=== PATIENT | female | born 1990 | race Caucasian/White ===

== ENCOUNTER 2018-07-06 06:05 | Emergency (ER) | payer BC ==
--- OUTSIDE RECORDS SUMMARY | 2018-07-06 06:08 | XMS REPORT | Clinical Summary ---
:1990 Author Organization [facility] Address [address] [place] [address] Care Team Providers Name Role Phone Chiquita Stallings MD Primary Care Provider Allergies Active Allergy Reactions Severity Noted Date Comments Cephalosporins High 09/24/2017 Medications Medication Sig Dispensed Refills Start Date End Date Status etonogestrel 68 mg Inject under 0 Active implant the skin. sulfamethoxazole-tr Take 1 tablet 14 tablet 0 09/24/2017 imethoprim (BACTRIM by mouth 2 8 DS) 800-160 mg per (two) times a tablet day for 7 days. smx-tmp DS (BACTRIM) 800-160 mg tabs (1tab q12 D10) ciprofloxacin Take 500 mg by 0 Discontinued (CIPRO) 500 MG mouth 2 (two) 8 tablet times a day. clindamycin Take 2 28 capsule 0 02/27/2018 (CLEOCIN) 150 MG capsules (300 8 capsule mg total) by mouth 3 (three) times a day for 7 days. ibuprofen Take 1 tablet 30 tablet 0 02/27/2018 (ADVIL,MOTRIN) 600 (600 mg total) 8 MG tablet by mouth every 6 (six) hours as needed for moderate pain for up to 30 days. Active Problems Not on file Encounters Date Type Specialty Care Team Description 06/08/2018 Office Visit Chiquita Saleh, Hilar adenopathy (Primary Dx); Medicine Anterior cervical adenopathy; Other fatigue; Chronic night sweats 03/06/2018 Office Visit Chiquita Saleh, Pure hypercholesterolemia (Primary Dx); Medicine Subclinical hypothyroidism; Hilar adenopathy; Anterior cervical adenopathy; Inguinal adenopathy; Chronic bilateral low back pain without sciatica 02/26/2018 Emergency Emergency Anusha, Pharyngitis, unspecified - Medicine Esequiel etiology (Primary Dx) 02/27/2018 MD Richard 02/26/2018 Hospital Radiology Chiquita Stallings, Chronic bilateral low back Encounter MD pain without sciatica 02/25/2018 Office Visit Internal Chiquita Stallings, Hilar adenopathy (Primary Dx); Medicine MD Anterior cervical adenopathy; Acute cystitis without hematuria; Inguinal adenopathy; Chronic bilateral low back pain without sciatica; Elevated fasting blood sugar; Other fatigue; Weight gain; Screening for lipid disorders; Screening for diabetes mellitus 09/24/2017 Emergency Emergency Bakari Win Insect bite, initial Medicine T. III, encounter (Primary Dx) after 07/05/2017 Family History Medical History Relation Name Comments Atrial fibrillation Father Sleep apnea Father Hyperlipidemia Mother Hypertension Mother Transient ischemic attack Mother Colon cancer Paternal Grandmother Diabetes Paternal Grandmother Relation Name Status Comments Father Mother Paternal Grandmother Social History Tobacco Use Types Packs/Day Years Used Date Current Every Day Smoker Cigarettes Smokeless Tobacco: Current User Sex Assigned at Date Recorded Not on file Job Start Date Occupation Industry Not on file Not on file Not on file Travel History Travel Start Travel End No recent travel history available. Last Filed Vital Signs Vital Sign Reading Time Taken Blood Pressure 125/85 06/08/2018 4:13 PM CDT Pulse 106 06/08/2018 4:13 PM CDT Temperature 37 C (98.6 F) 03/06/2018 3:07 PM CDT Respiratory Rate 18 02/27/2018 12:37 AM CDT Oxygen Saturation 97% 06/08/2018 4:13 PM CDT Inhaled Oxygen Concentration - - Weight 98.9 kg (218 lb) 06/08/2018 4:13 PM CDT Height 167.6 cm (5' 6") 06/08/2018 4:13 PM CDT Body Mass Index 35.19 06/08/2018 4:13 PM CDT Plan of Treatment Health Maintenance Due Date Last Done Comments MMR VACCINES (1 of - 1993 Standard series) VARICELLA VACCINES (1 of 2 - 2005 2-dose adolescent series) INFLUENZA VACCINE 03/18/2018 05/18/2017, 08/12/2012 CERVICAL CANCER SCREENING 01/04/2019 01/05/2016 HEPATITIS B VACCINES Aged Out No longer eligible based on patient's age to complete this topic IPV VACCINES Aged Out No longer eligible based on patient's age to complete this topic MENINGOCOCCAL VACCINE Aged Out No longer eligible based on patient's age to complete this topic Procedures Procedure Name Priority Date/Time Associated Comments Diagnosis HIV 1/2 Routine 06/08/2018 4:46 Hilar adenopathy Results for this ANTIGEN/ANTIBODY, PM CDT Anterior cervical procedure are in FOURTH GENERATION adenopathy the results W/RFL Other fatigue section. Chronic night sweats STREP SCREEN CULTURE Routine 02/26/2018 11:51 Results for this PM CDT procedure are in the results section. GROUP A STREP, RAPID Routine 02/26/2018 11:30 Results for this ANTIGEN PM CDT procedure are in the results section. XR LUMBAR SPINE Routine 02/26/2018 1:41 Chronic bilateral Results for this COMPLETE 4+ VW PM CDT low back pain procedure are in without sciatica the results section. MICROSCOPIC Routine 02/25/2018 3:10 Results for this EXAMINATION PM CDT procedure are in the results section. SEDIMENTATION RATE Routine 02/25/2018 3:10 Hilar adenopathy Results for this PM CDT Anterior cervical procedure are in adenopathy the results Inguinal adenopathy section. URINALYSIS, COMPLETE, Routine 02/25/2018 3:10 Acute cystitis Results for this WITH REFLEX TO CULTURE PM CDT without hematuria procedure are in the results section. T4, FREE Routine 02/25/2018 3:10 Other fatigue Results for this PM CDT Weight gain procedure are in the results section. THYROID STIMULATING Routine 02/25/2018 3:10 Other fatigue Results for this HORMONE PM CDT Weight gain procedure are in the results section. LIPID PANEL Routine 02/25/2018 3:10 Screening for lipid Results for this PM CDT disorders procedure are in the results section. HEMOGLOBIN A1C Routine 02/25/2018 3:10 Elevated fasting Results for this PM CDT blood sugar procedure are in Screening for the results diabetes mellitus section. after 07/05/2017 Results HIV 1/2 ANTIGEN/ANTIBODY, FOURTH GENERATION W/RFL (06/08/2018 4:46 PM CDT) HIV AG/AB 4th gen Non Reactive Non Reactive [facility] Narrative Performed At Performed at: - [facility] [address] [facility], [id number] Elevator Constructor Hydraulic: Adalberto Aviles MD, Phone:[phone] Performing Organization Address City/State/Zipcode Phone Number [facility] Strep screen culture (02/26/2018 11:51 PM CDT) Strep screen culture No beta hemolytic Streptococci isolated [facility] DEPARTMENT OF isolate Comment: PATHOLOGY AND GENOMIC Specimen Information MEDICINE Specimen Source: Throat Specimen Site: Not otherwise specified Specimen Throat - Not otherwise specified Performing Organization Address City/State/Zipcode Phone Number [facility] DEPARTMENT OF PATHOLOGY AND [address] [place] [address] [facility] Group A strep, rapid antigen (02/26/2018 11:30 PM CDT) Group A strep, rapid Negative for Group A Streptococcus antigen. DEPARTMENT OF antigen result Comment: PATHOLOGY AND GENOMIC Specimen Information [facility] Specimen Source: Throat [facility] Specimen Site: Not otherwise specified Specimen Throat - Not otherwise specified Performing Organization Address [facility] Phone Number DEPARTMENT OF PATHOLOGY AND [address] [place] [address] [facility]R Lumbar Spine Complete 4+ Vw (02/26/2018 1:41 PM CDT) Narrative Performed At EXAMINATION: XR LUMBAR SPINE COMPLETE 4VW [facility] CLINICAL HISTORY: M54.5 Low back pain, G89.29 Other chronic pain, BACK PAIN 6 WKS DESPITE [place] COMPARISON:None IMPRESSION: 5 nonrib-bearing lumbar-type vertebrae visualized. The alignment is within normal limits. No subluxation. No fractures or pars interarticularis defects. Vertebral body and intervertebral disc heights are preserved. [id number] Procedure Note Interface, Radiology Results Incoming - 02/26/2018 5:25 PM CDT EXAMINATION: XR LUMBAR SPINE COMPLETE 4 VW CLINICAL HISTORY: M54.5 Low back pain, G89.29 Other chronic pain, BACK PAIN 6 WKS [place] COMPARISON: None IMPRESSION: 5 nonrib-bearing lumbar-type vertebrae visualized. The alignment is within normal limits. No subluxation. No fractures or pars interarticularis defects. Vertebral body and intervertebral disc heights are preserved. [id number] Performing Organization Address City/[facility]/Zipcode Phone Number [facility] [address] [place] [address] URINALYSIS, COMPLETE, WITH REFLEX TO CULTURE (02/25/2018 3:10 PM CDT) Specific gravity, urine 1.016 1.005 - 1.030 [facility] pH, urine 5.5 5.0 - 7.5 [facility] Color, UA Yellow Yellow [facility] Appearance Clear Clear [facility] WBC esterase, urine Negative Negative [facility] Protein, UA Negative Negative/Trace [facility] Glucose, urine Negative Negative [facility] Ketones, UA Negative Negative [facility] Occult blood, urine Negative Negative [facility] Bilirubin, UA Negative Negative [facility] Urobilinogen, UA 0.2 0.2 - 1.0 mg/dL [facility] Nitrite, UA Negative Negative [facility] Microscopic examination CommentComment: Microscopic [facility] follows if indicated. Microscopic examination See below:Comment: Microscopic [facility] was indicated and was performed. Urinalysis reflex CommentComment: This specimen [facility] will not reflex to a Urine Culture. Narrative Performed At Performed at: [facility] [address] [place], [place] [id number] Elevator Constructor Hydraulic: Adalberto Aviles MD, Phone:[phone] Performing Organization Address [facility] Phone Number [facility] Microscopic Examination (02/25/2018 3:10 PM CDT) WBC, UA 0-5 0 - 5 /hpf [facility] RBC, UA 0-2 0 - 2 /hpf [facility] Epithelial cells (non renal) 0-10 0 - 10 /hpf [facility] Casts Present (A) None seen /lpf [facility] Cast type Hyaline casts N/A [facility] Mucus, UA Present Not Estab. [facility] Bacteria, UA None seen None seen/Few [facility] Narrative Performed At Performed at: [facility], [id number] Elevator Constructor Hydraulic: Adalberto Aviles MD, Phone:[phone] Performing Organization Address [facility] Phone Number [facility] Sedimentation rate (02/25/2018 3:10 PM CDT) Sedimentation rate 2 0 - 32 mm/hr [facility] Specimen Blood Narrative Performed At Performed at: [id number] Elevator Constructor Hydraulic: Adalberto Aviles MD, Phone:[phone] Performing Organization Address [facility] Phone Number [facility] Thyroid stimulating hormone (02/25/2018 3:10 PM CDT) TSH 5.810 (H) 0.450 - 4.500 uIU/mL [facility] Specimen Blood Narrative Performed At Performed at: [id number] Elevator Constructor Hydraulic: Adalberto Aviles MD, Phone:[phone] Performing Organization Address [facility] Phone Number [facility] T4, free (02/25/2018 3:10 PM CDT) T4, free 1.26 0.82 - 1.77 ng/dL [facility] Specimen Blood Narrative Performed At Performed at: [id number] Elevator Constructor Hydraulic: Adalberto Aviles MD, Phone:[phone] Performing Organization Address [facility] Phone Number [facility] Hemoglobin A1c (02/25/2018 3:10 PM CDT) Hemoglobin A1C 5.1 4.8 - 5.6 % [facility] Comment: Pre-diabetes: 5.7 - 6.4 Diabetes: >6.4 Glycemic control for adults with diabetes: <7.0 Specimen Blood Narrative Performed At Performed at: [id number] Elevator Constructor Hydraulic: Adalberto Aviles MD, Phone:[phone] Performing Organization Address [facility] Phone Number [facility] Lipid panel (02/25/2018 3:10 PM CDT) Cholesterol 211 (H) 100 - 199 mg/dL [facility] Triglycerides 128 0 - 149 mg/dL [facility] HDL cholesterol 35 (L) >39 mg/dL [facility] VLDL cholesterol dionne 26 5 - 40 mg/dL [facility] LDL cholesterol calculated 150 (H) 0 - 99 mg/dL [facility] Non-HDL cholesterol 176 (H) 0 - 129 mg/dL [facility] Specimen Blood Narrative Performed At Performed at:01 - [facility] [address], [id number] Elevator Constructor Hydraulic: Adalberto Aviles MD, Phone:[phone] Performing Organization Address City/State/Zipcode Phone Number [facility] after 07/05/2017 Insurance Payer Benefit Plan / Group Subscriber ID Type Phone Address BCBS BCBS CHOICE PPO/F[employer]ERAL EMPL PPO xxxxxxxxxxxx PPO [phone] [id number] [phone] [place] [address] 3 (Work) Advance Directives Patient has advance care planning documents on file. For more information, please contact:Emigdio Atkinson[address] [place] [id number]
[2018-07-06] MEDS ORDERED: ACETAMINOPHEN 500 MG TAB ONE (06:38)
[2018-07-06] MEDS ORDERED: ONDANSETRON 4 MG/2 ML VIAL ONE (06:38)
[2018-07-06] MEDS ORDERED: NA CHLORIDE 0.9% 1,000 ML ONE (06:38)
[2018-07-06 07:03] LABS: ALT/SGPT 30 U/L (12-78); AST/SGOT 19 U/L (15-37); Albumin 3.7 g/dL (3.4-5.0); Alkaline Phosphatase 90 U/L (45-117); BUN Blood Urea Nitrogen 7 mg/dL (7-18); Bicarbonate 25 mmol/L (21-32); Bilirubin Direct < 0.1 mg/dL (0-0.2); Bilirubin Total 0.1 mg/dL (0.2-1.0); Glucose Level 103 mg/dL (74-106); Lipase 98 U/L (73-393); Potassium 3.8 mmol/L (3.5-5.1); Protein, Total 7.5 g/dL (6.4-8.2); Sodium Level 138 mmol/L (136-145)
[2018-07-06 07:04] LABS: HCG, Quantitative < 1 mIU/mL (1-3)
[2018-07-06 08:21] LABS: Absolute Lymphocytes (CBC) 2.3 K/uL (0.7-4.9); Absolute Monocytes 0.7 K/uL (0.1-1.3); Absolute Neutrophil 7.2 K/uL (1.8-8.0); Basophils % 0.6 % (0-1.3); Eosinophils % 2.5 % (0-4.4); Lymphocytes % 21.5 % (15.3-44.8); MCH 31.5 pg (27.0-35.0); MCV 89.8 fL (80-100); MPV 9.4 fL (7.6-11.3); Monocytes % 6.9 % (3.3-12.3); RBC Red Blood Cell Count 4.56 M/uL (3.86-4.86)
--- NOTE | 2018-07-06 08:38 | RAD REPORT ---
EXAM DESCRIPTION: CTAbdomen Pelvis W Contrast - 07/06/2018 7:54 am CLINICAL HISTORY: Abdominal pain. iv only;Abd pain COMPARISON: No comparisons TECHNIQUE: Biphasic CT imaging of the abdomen and pelvis was performed with 100 ml non-ionic IV cont rast. All CT scans are performed using dose optimization technique as appropriate and may include automated exposure control or mA/KV adjustment according to patient size. FINDINGS: The lung bases are clear.Small hiatal hernia. The liver, spleen, pancreas, adrenal glands and kidneys are within normal limits. No bowel obstruction, free air, free fluid or abscess. A large amount of stool is retained in the col on. The appendix is normal. No evidence of significant lymphadenopathy. No suspicious bony findings. IMPRESSION: No acute intra-abdominal or pelvic finding. Significant fecal retention in the colon.
--- NOTE | 2018-07-06 08:48 | ER ---
Nurse's Notes [facility] Name: Ashley Lindsay Age: 27 yrs Sex: Female : 1990 Arrival Date: 07/06/2018 Time: 06:07 Bed 17 Private MD: Diagnosis: Pneumonia due to other specified bacteria;Dehydration;Abdominal and pelvic pain Presentation: 07/06 06:15 Presenting complaint: Patient states: "I have had a sinus infection for about 2 weeks jd3 now and it is just not getting any better. I started having nausea and vomiting and have thrown up 5 times last night.". Transition of care: patient was not received from another setting of care. Onset of symptoms was June 22, 2018. Risk Assessment: Do you want to hurt yourself or someone else? Patient reports no desire to harm self or others. Initial Sepsis Screen: Does the patient meet any 2 criteria? HR > 90 bpm. No. Patient's initial sepsis screen is negative. Does the patient have a suspected source of infection? No. Patient's initial sepsis screen is negative. Care prior to arrival: None. 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 - Social history:: Smoking status: Patient uses tobacco products, smokes one pack cigarettes per day. - Ebola Screening: : Patient negative for fever greater than or equal to 101.5 degrees Fahrenheit, and additional compatible Ebola Virus Disease symptoms. Screenin:25 Abuse screen: Denies threats or abuse. Nutritional screening: No deficits noted. jd3 Tuberculosis screening: No symptoms or risk factors identified. Fall Risk Ambulatory Aid- None/Bed Rest/Nurse Assist (0 pts). Gait- Normal/Bed Rest/Wheelchair (0 pts) Mental Status- Oriented to own ability (0 pts). Total Leyva Fall Scale indicates No Risk (0-24 pts). Assessment: 06:23 General: Appears uncomfortable, Behavior is calm, cooperative, appropriate for age. jd3 Pain: Complains of pain in abdomen Pain currently is 3 out of 10 on a pain scale. Quality of pain is described as aching, tender. Neuro: Level of Consciousness is awake, alert, obeys commands, Oriented to person, place, time, situation. Cardiovascular: Capillary refill < 3 seconds Patient's skin is warm and dry. Respiratory: Reports cough that is Airway is patent Respiratory effort is even, unlabored, Respiratory pattern is regular, symmetrical, Breath sounds are clear bilaterally. GI: Abdomen is round non-distended, Bowel sounds present X 4 quads. Abd is soft Abdomen is tender to palpation in left upper quadrant and left lower quadrant Reports nausea, vomiting. : No signs and/or symptoms were reported regarding the genitourinary system. EENT: No signs and/or symptoms were reported regarding the EENT system. Derm: Skin is intact, Skin is dry, Skin is normal, Skin temperature is warm. Musculoskeletal: Circulation, motion, and sensation intact. Range of motion: intact in all extremities. 07:05 General: Appears comfortable, Behavior is calm, cooperative. Pain: Complains of pain in aa5 left lower quadrant Pain does not radiate. Pain currently is 2 out of 10 on a pain scale. Quality of pain is described as dull, Pain began "during the night" Is continuous. Neuro: Level of Consciousness is awake, alert, obeys commands, Oriented to person, place, time, situation. Cardiovascular: Heart tones S1 S2 present. Respiratory: Reports cough and chest congestion x 2 weeks ago Airway is patent Respiratory effort is even, unlabored, Respiratory pattern is regular, symmetrical, Breath sounds are clear bilaterally. GI: Abdomen is round non-distended, Bowel sounds present X 4 quads. Abd is soft X 4 quads Abdomen is tender to palpation in left lower quadrant Reports nausea, vomiting, since "during the night". : No signs and/or symptoms were reported regarding the genitourinary system. EENT: Reports nasal congestion. Derm: Skin is pink, warm \\T\\ dry. Musculoskeletal: Range of motion: intact in all extremities. 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 [facility] 07:51 Reassessment: wheeled to CT;. 08:05 Reassessment: CBC recollected and sent to lab . aa5 08:05 Reassessment: Patient is alert, oriented x 3, equal unlabored respirations, skin aa5 warm/dry/pink. Pt sitting up in bed watching TV . 08:59 Reassessment: Patient appears in no apparent distress at this time. Patient and/or iw family updated on plan of care and expected duration. Pain level reassessed. Patient is alert, oriented x 3, equal unlabored respirations, skin warm/dry/pink. Patient states feeling better. Patient states symptoms have improved. Vital Signs: 06:19 BP 149 / 88; Pulse 127; Resp 19 S; Temp 99.3(O); Pulse Ox 98% on R/A; Weight 97.52 kg jd3 (R); Height 5 ft. 6 in. (167.64 cm) (R); Pain 3/10; 07:07 BP 112 / 94; Pulse 100; Resp 18 S; Temp 98.3(O); Pulse Ox 100% on R/A; Pain 2/10; aa5 08:14 BP 119 / 75; Pulse 93; Resp 16 S; Temp 98.3(O); Pulse Ox 99% on R/A; Pain 2/10; aa5 06:19 Body Mass Index 34.70 (97.52 kg, 167.64 cm) jd3 ED Course: 06:07 Patient arrived in ED. al2 06:14 Pedro Gutierrez RN is Primary Nurse. jd3 06:16 Triage completed. jd3 06:21 Keith Sofia PA is PHCP. jr8 06:21 Tyrell Sofia MD is Attending Physician. jr8 06:22 Arm band placed on. jd3 06:25 Patient has correct armband on for positive identification. Bed in low position. Call j light in reach. Side rails up X 1. 06:32 Strep Sent. mw2 06:32 Flu Sent. mw2 06:33 Lipase Sent. mw2 06:33 Hepatic Function Sent. mw2 06:33 Creatinine for Radiology Sent. mw2 06:33 CBC with Diff Sent. mw2 06:33 Basic Metabolic Panel Sent. mw2 07:00 Report received from MARIANELA Vasquez. aa5 07:03 X-ray completed. Portable x-ray completed in exam room. Patient tolerated procedure jb2 well. 07:04 XRAY Chest (1 view) In Process Unspecified. EDMS 07:08 IV 20 G to R AC noted with NS infusing. . aa5 07:54 CT Abd/Pelvis - W/Contrast In Process Unspecified. EDMS 08:59 No provider procedures requiring assistance completed. IV discontinued, intact, iw bleeding controlled, No redness/swelling at site. Pressure dressing applied. Administered Medications: 06:25 CANCELLED (Physician Discretion): Ibuprofen 800 mg PO once jr8 06:39 Drug: NS 0.9% 1000 ml Route: IV; Rate: 1000 ml; Site: left antecubital; jd3 08:40 Follow up: IV Status: Completed infusion iw 06:39 Drug: Zofran 4 mg Route: IVP; Site: left antecubital; jd3 08:59 Follow up: Response: No adverse reaction iw 06:39 Drug: Tylenol 1000 mg Route: PO; jd3 09:00 Follow up: Response: No adverse reaction; Pain is decreased iw Outcome: 08:47 Discharge ordered by MD. jr8 08:59 Discharged to home ambulatory. iw 08:59 Condition: good 08:59 Discharge instructions given to patient, Instructed on discharge instructions, follow up and referral plans. medication usage, Demonstrated understanding of instructions, follow-up care, medications, Prescriptions given X 4. 09:00 Patient left the ED. iw Signatures: Dispatcher [employer] ED[facility] Ole Jeter2 Magdalena Lindsay, RN MARIANELA iw Claire Gutierrez RN RN aa5 Keith Sofia PA PA jr8 Rene Thomas RN RN hj Davies, Jonathon, RN RN jd3 Love, Angelica al2 [place], MyKena mw2
--- NOTE | 2018-07-06 08:48 | EDPHYS ---
Physician Documentation [facility] Name: Ashley Lindsay Age: 27 yrs Sex: Female : 1990 Arrival Date: 07/06/2018 Time: 06:07 Bed 17 Private MD: ED Physician Tyrell Sofia HPI: 07/06 06:28 This 27 yrs old Female presents to ER via Ambulatory with complaints of jr8 Fever, Cough, Chest Congestion. 06:28 The patient reports fever, with an emergency department temperature of 99.3 degrees jr8 Fahrenheit. Onset: The symptoms/episode began/occurred acutely, 2 week(s) ago, and became worse and became persistent. Modifying factors: there are no obvious modifying factors. Associated signs and symptoms: Pertinent positives: abdominal pain, nausea, vomiting. Severity of symptoms: At their worst the symptoms were moderate in the emergency department the symptoms are unchanged. The patient has not experienced similar symptoms in the past. The patient has not recently seen a physician. 06:30 Patient has had sinus congestion and cough for couple of weeks. Within last two days jr8 feels much worse. Started vomiting and having lower abdominal pain. Stated that the other day had positive home . Has control implant. Took multiple others after that with all showing negative . 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 - Social history:: Smoking status: Patient uses tobacco products, smokes one pack cigarettes per day. - Ebola Screening: : Patient negative for fever greater than or equal to 101.5 degrees Fahrenheit, and additional compatible Ebola Virus Disease symptoms. ROS: 06:28 Eyes: Negative for injury, pain, redness, and discharge, Neck: Negative for injury, jr8 pain, and swelling, Cardiovascular: Negative for chest pain, palpitations, and edema, Back: Negative for injury and pain, MS/Extremity: Negative for injury and deformity, Skin: Negative for injury, rash, and discoloration, Neuro: Negative for headache, weakness, numbness, tingling, and seizure. 06:28 Constitutional: Positive for fever. 06:28 ENT: Positive for rhinorrhea, sinus congestion, sore throat. 06:28 Respiratory: Positive for cough, wheezing. 06:28 Abdomen/GI: Positive for abdominal pain, nausea and vomiting, Negative for diarrhea, constipation, abdominal distension, anorexia, dysphagia, hematemesis, black/tarry stool, rectal pain, rectal bleeding, bowel incontinence, flatulence. Exam: 06:28 Eyes: Pupils equal round and reactive to light, extra-ocular motions intact. Lids and jr8 lashes normal. Conjunctiva and sclera are non-icteric and not injected. Cornea within normal limits. Periorbital areas with no swelling, redness, or edema. ENT: Nares patent. No nasal discharge, no septal abnormalities noted. Tympanic membranes are normal and external auditory canals are clear. Oropharynx with no redness, swelling, or masses, exudates, or evidence of obstruction, uvula midline. Mucous membranes moist. Neck: Trachea midline, no thyromegaly or masses palpated, and no cervical lymphadenopathy. Supple, full range of motion without nuchal rigidity, or vertebral point tenderness. No Meningismus. Cardiovascular: Regular rate and rhythm with a normal S1 and S2. No gallops, murmurs, or rubs. Normal PMI, no JVD. No pulse deficits. Respiratory: Lungs have equal breath sounds bilaterally, clear to auscultation and percussion. No rales, rhonchi or wheezes noted. No increased work of breathing, no retractions or nasal flaring. Back: No spinal tenderness. No costovertebral tenderness. Full range of motion. Skin: Warm, dry with normal turgor. Normal color with no rashes, no lesions, and no evidence of cellulitis. MS/ Extremity: Pulses equal, no cyanosis. Neurovascular intact. Full, normal range of motion. Neuro: Awake and alert, GCS 15, oriented to person, place, time, and situation. Cranial nerves II-XII grossly intact. Motor strength 5/5 in all extremities. Sensory grossly intact. Cerebellar exam normal. Normal gait. 06:28 Abdomen/GI: Inspection: abdomen appears normal, Bowel sounds: active, all quadrants, Palpation: soft, in all quadrants, moderate abdominal tenderness, in the left lower quadrant, mass, is not appreciated, rebound tenderness, is not appreciated, voluntary guarding, is not appreciated, involuntary guarding, is not appreciated, no appreciated organomegaly, Indicators: McBurney's point is not tender, Evans's sign is negative, Rovsing's sign is negative, Liver: no appreciated palpable abnormalities, tenderness, is not appreciated. Vital Signs: 06:19 BP 149 / 88; Pulse 127; Resp 19 S; Temp 99.3(O); Pulse Ox 98% on R/A; Weight 97.52 kg jd3 (R); Height 5 ft. 6 in. (167.64 cm) (R); Pain 3/10; 07:07 BP 112 / 94; Pulse 100; Resp 18 S; Temp 98.3(O); Pulse Ox 100% on R/A; Pain 2/10; aa5 08:14 BP 119 / 75; Pulse 93; Resp 16 S; Temp 98.3(O); Pulse Ox 99% on R/A; Pain 2/10; aa5 06:19 Body Mass Index 34.70 (97.52 kg, 167.64 cm) jd3 MDM: 06:21 Patient medically screened. jr8 08:41 Data reviewed: vital signs, nurses notes, lab test result(s), radiologic studies, CT jr8 scan, plain films, and as a result, I will discharge patient. Data interpreted: Pulse oximetry: on room air is 99 %. Interpretation: normal. Counseling: I had a detailed discussion with the patient and/or guardian regarding: the historical points, exam findings, and any diagnostic results supporting the discharge/admit diagnosis, lab results, radiology results, the need for outpatient follow up, a family practitioner, to return to the emergency department if symptoms worsen or persist or if there are any questions or concerns that arise at home. Response to treatment: the patient's symptoms have markedly improved after treatment, patient is well hydrated. 07/06 06:25 Order name: Basic Metabolic Panel; Complete Time: 07:14 07/06 06:25 Order name: CBC with Diff; Complete Time: 08:25 07/06 06:25 Order name: Creatinine for Radiology; Complete Time: 07:03 07/06 06:25 Order name: Hepatic Function; Complete Time: 07:14 07/06 06:25 Order name: Lipase; Complete Time: 07:14 07/06 06:25 Order name: HCG-Quantitative; Complete Time: 07:14 07/06 06:26 Order name: Flu; Complete Time: 07:03 07/06 06:26 Order name: Strep; Complete Time: 07:03 07/06 06:26 Order name: XRAY Chest (1 view); Complete Time: 08:52 07/06 06:59 Order name: Throat Culture EDKY 07/06 07:25 Order name: CT Abd/Pelvis - W/Contrast; Complete Time: 08:41 07/06 06:25 Order name: IV Saline Lock; Complete Time: 06:33 07/06 06:25 Order name: Labs collected and sent; Complete Time: 06:32 07/06 06:25 Order name: Urine Dipstick-Ancillary (obtain specimen); Complete Time: 08:10 07/06 07:51 Order name: Labs - recollect needed; Complete Time: 08:10 bd Administered Medications: 06:25 CANCELLED (Physician Discretion): Ibuprofen 800 mg PO once jr8 06:39 Drug: NS 0.9% 1000 ml Route: IV; Rate: 1000 ml; Site: left antecubital; jd3 08:40 Follow up: IV Status: Completed infusion iw 06:39 Drug: Zofran 4 mg Route: IVP; Site: left antecubital; jd3 08:59 Follow up: Response: No adverse reaction iw 06:39 Drug: Tylenol 1000 mg Route: PO; jd3 09:00 Follow up: Response: No adverse reaction; Pain is decreased Disposition: 13:58 Co-signature as Attending Physician, Tyrell Sofia MD I agree with the assessment and charlene plan of care. Disposition: 07/06/18 08:47 Discharged to Home. Impression: Pneumonia due to other specified bacteria, Dehydration, Abdominal and pelvic pain. - Condition is Stable. - Discharge Instructions: Abdominal Pain, Adult, Dehydration, Adult, Community-Acquired Pneumonia, Adult. - Prescriptions for Zofran 4 mg Oral Tablet - take 1 tablet by ORAL route every 12 hours As needed; 20 tablet. Zithromax Z- Steven 250 mg Oral Tablet - take 1 tablet by ORAL route as directed for 5 days Day 1 - take two (2) tablets one time. Day 2, 3, 4 , 5 take one (1) tablet once daily.; 6 tablet. Albuterol Sulfate 90 mcg/actuation - inhale 1-2 puff by INHALATION route every 4-6 hours; 1 Inhaler. Guaifenesin AC 10- 100 mg/5 mL Oral Liquid - take 10 milliliter by ORAL route every 4 hours As needed; 240 milliliter. - Medication Reconciliation Form, Thank You Letter, Antibiotic Education, Prescription Opioid Use form. - Follow up: Private Physician; When: 5 - 6 days; Reason: Recheck today's complaints, Continuance of care, Re-evaluation by your physician. - Problem is new. - Symptoms have improved. Signatures: Dispatcher [employer] EDMS Trisha Muniz Corey, MD MD cha Williams, Irene RN RN Keith Russo PA PA jr8 Pedro Gutierrez RN RN jd3 Corrections: (The following items were deleted from the chart) 06:25 06:25 Ibuprofen 800 mg PO once ordered. jr8 jr8 09:00 08:47 07/06/2018 08:47 Discharged to Home. Impression: Pneumonia due to other specified iw bacteria; Dehydration; Abdominal and pelvic pain. Condition is Stable. Forms are Medication Reconciliation Form, Thank You Letter, Antibiotic Education, Prescription Opioid Use. Follow up: Private Physician; When: 5 - 6 days; Reason: Recheck today's complaints, Continuance of care, Re-evaluation by your physician. Problem is new. Symptoms have improved. jr8
--- NOTE | 2018-07-06 08:51 | RAD REPORT ---
EXAM DESCRIPTION: RAD - Chest Single View - 07/06/2018 7:03 am CLINICAL HISTORY: COUGH Chest pain. COMPARISON: Abdomen Pelvis W Contrast dated 07/06/2018 FINDINGS: Portable technique limits examination quality. The lungs are grossly clear. The heart is normal in size. No displaced fractures. IMPRESSION: No acute intrathoracic process suspected.
== END 2018-07-06 09:00 | disposition home or self-care (01) ==
LOC: ER 06:05
DX: J15.8 Pneumonia due to other specified bacteria (principal); E86.0 Dehydration; F17.210 Nicotine dependence, cigarettes, uncomplicated; Z88.3 Allergy status to other anti-infective agents
CPT/HCPCS: 36415; 71045; 74177; 80048; 80076; 83690; 84702; 85025; 87070; 87081; 87804; 96361; 96374; 99284; J2405; J7030; Q9967

== ENCOUNTER 2018-08-18 02:19 | Emergency (ER) | payer BC ==
--- OUTSIDE RECORDS SUMMARY | 2018-08-18 02:21 | XMS REPORT | Clinical Summary ---
:1990 Author Organization [facility] Address [address] [place] [address] Care Team Providers Name Role Phone Chiquita [...] back pain without sciatica 02/26/2018 Emergency Emergency Iradela, Pharyngitis, unspecified - Medicine [place] etiology (Primary Dx) 02/27/2018 MD Richard 02/26/2018 [...] Medicine T. III, encounter (Primary Dx) after 08/17/2017 Family History Medical History Relation Name Comments [...] Health Maintenance Due Date Last Done Comments INFLUENZA VACCINE 03/18/2018 05/18/2017, 08/12/2012 CERVICAL CANCER SCREENING 01/04/2019 01/05/2016 Procedures Procedure Name Priority Date/Time Associated Comments [...] for the results diabetes mellitus section. after 08/17/2017 Results HIV 1/2 ANTIGEN/ANTIBODY, FOURTH GENERATION W/RFL (06/08/2018 4:46 PM CDT) HIV AG/AB 4th gen Non Reactive Non Reactive [facility] Narrative Performed At Performed at:01 - [facility] [place] [facility] [address] [place], [id number] Maintenance Supervisor 2Nd Shift: Adalberto Aviles MD, Phone:[phone] Performing Organization Address City/State/Zipcode Phone Number [facility] Strep screen culture (02/26/2018 11:51 PM CDT) Strep screen culture No beta hemolytic Streptococci isolated [facility] DEPARTMENT OF isolate Comment: PATHOLOGY AND GENOMIC Specimen Information MEDICINE Specimen Source: Throat Specimen Site: Not otherwise specified Specimen Throat - Not otherwise specified Performing Organization Address City/[facility]/Zipcode Phone Number [facility] DEPARTMENT OF PATHOLOGY AND [address] [place] [address] [facility] Group A strep, rapid antigen (02/26/2018 11:30 PM CDT) Group A strep, rapid Negative for Group A Streptococcus antigen. DEPARTMENT OF antigen result Comment: PATHOLOGY AND GENOMIC Specimen [facility] Specimen Source: Throat [facility] Specimen Site: Not otherwise specified Specimen Throat - Not otherwise specified Performing Organization Address City/[facility]/Zipcode Phone Number DEPARTMENT OF PATHOLOGY AND [address] [place] [address] [facility] XR Lumbar Spine Complete 4+ Vw (02/26/2018 [...] body and intervertebral disc heights are preserved. [id number] Procedure Note Interface, Radiology Results Incoming - [...] body and intervertebral disc heights are preserved. [id number] Performing Organization Address City/[facility]/Zipcode Phone Number [facility] [address] [place] [address] URINALYSIS, COMPLETE, WITH REFLEX TO CULTURE (02/25/2018 [...] a Urine Culture. Narrative Performed At Performed at:[address] [place], [place] [id number] Maintenance Supervisor 2Nd Shift: Adalberto Aviles MD, Phone:[phone] Performing Organization Address [facility] Phone Number [facility] [...] None seen/Few [facility] Narrative Performed At Performed at:[address] [place], [place] [id number] Maintenance Supervisor 2Nd Shift: Adalberto Aviles MD, Phone:[phone] Performing Organization Address [facility] Phone Number [facility] Sedimentation rate (02/25/2018 3:10 PM CDT) Sedimentation rate 2 0 - 32 mm/hr [facility] Specimen Blood Narrative Performed At Performed at:[address] [place], [place] [id number] Maintenance Supervisor 2Nd Shift: Adalberto Aviles MD, Phone:[phone] Performing Organization Address [facility] Phone Number [facility] Thyroid stimulating hormone (02/25/2018 3:10 PM CDT) TSH 5.810 (H) 0.450 - 4.500 uIU/mL [facility] Specimen Blood Narrative Performed At Performed at: [id number] Maintenance Supervisor 2Nd Shift: Adalberto Aviles MD, Phone:[phone] Performing Organization Address [facility] Phone Number [facility] T4, free (02/25/2018 3:10 PM CDT) T4, free 1.26 0.82 - 1.77 ng/dL [facility] Specimen Blood Narrative Performed At Performed at: [id number] Maintenance Supervisor 2Nd Shift: Adalberto Aviles MD, Phone:[phone] Performing Organization Address [facility] Phone Number [facility] Hemoglobin A1c (02/25/2018 3:10 PM CDT) Hemoglobin A1C 5.1 4.8 - 5.6 % [facility] Comment: Pre-diabetes: 5.7 - 6.4 Diabetes: >6.4 Glycemic control for adults with diabetes: <7.0 Specimen Blood Narrative Performed At Performed at: [id number] Maintenance Supervisor 2Nd Shift: Adalberto Aviles MD, Phone:[phone] Performing Organization Address [facility] Phone Number [facility] Lipid panel (02/25/2018 3:10 PM CDT) Cholesterol 211 (H) 100 - 199 mg/dL [facility] Triglycerides 128 0 - 149 mg/dL [facility] HDL cholesterol 35 (L) >39 mg/dL [facility] VLDL cholesterol dionne 26 5 - 40 mg/dL [facility] LDL cholesterol calculated 150 (H) 0 - 99 mg/dL [facility] Non-HDL cholesterol 176 (H) 0 - 129 mg/dL [facility] Specimen Blood Narrative Performed At Performed at:[address] [place], [place] [id number] Maintenance Supervisor 2Nd Shift: Adalberto Aviles MD, Phone:[phone] Performing Organization Address [facility] Phone Number [facility] after 08/17/2017 Insurance Payer Benefit Plan / Group Subscriber ID Type Phone Address BCBS BCBS CHOICE PPO/[employer]PL PPO xxxxxxxxxxxx PPO Guarantor Name Account Type Relation to Date of Phone Billing Address Patient Freddy Lindsay Personal/Famil Self 1990 [phone] Rosa M ie y [phone] [place] [address] 3 (Work) Advance Directives Patient has advance care planning documents on file. For more information, please contact:Emigdio [email or web address] [place] [address]
[2018-08-18] MEDS ORDERED: HYDROCODONE/APAP 7.5/325 MG TAB ONE (02:47)
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
[2018-08-18 03:26] LABS: Urine Blood NEGATIVE (NEG); Urine Glucose NEGATIVE (NEG); Urine Protein NEGATIVE (NEG); Urine Specific Gravity 1.025 (1.005-1.030); Urine pH 5.5 (5.0-7.0)
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
== END 2018-08-18 03:16 | disposition home or self-care (01) ==
LOC: ER 02:19
DX: S50.12XA Contusion of left forearm, initial encounter (principal); S13.4XXA Sprain of ligaments of cervical spine, initial encounter; S16.1XXA Strain of muscle, fascia and tendon at neck level, initial encounter; R07.9 Chest pain, unspecified; F17.210 Nicotine dependence, cigarettes, uncomplicated; V43.52XA Car driver injured in collision with other type car in traffic accident, initial encounter
CPT/HCPCS: 71045; 72040; 81003; 81025; 99284